=== PATIENT | female | born 1990 | race Caucasian/White ===

== ENCOUNTER 2023-03-28 08:21 | Emergency (ER) | payer OTHER, SELFPAY ==
[2023-03-28] VITALS (7 sets, daily range): BP systolic 114–144; BP diastolic 75–88; BMI 29.4
[2023-03-28] MEDS: NSS 1000 IV (09:58)
[2023-03-28 10:24] LABS: ALT (SGPT) 236 U/L (0-35); AST (SGOT) 322 U/L (14-36); Albumin 4.8 g/dl (3.5-5.0); Alkaline Phosphatase 104 U/L (38-126); Blood Urea Nitrogen 8 mg/dl (7-17); Calcium 9.8 mg/dl (8.4-10.2); Carbon Dioxide 23 mmol/L (22-30); Chloride 103 mmol/L (98-107); Estimated Creatinine Clearance > 125 ml/min; Glucose 133 mg/dl (70-99); Potassium 3.2 mmol/L (3.5-5.1); Sodium 136 mmol/L (135-145); Total Bilirubin 4.3 mg/dl (0.2-1.3); Total Protein 8.1 g/dl (6.3-8.2); eGFR > 60.00
[2023-03-28 10:26] LABS: D-Dimer < 0.27 ug/mlFEU (0.00-0.50)
[2023-03-28 10:31] LABS: Troponin I < 0.012 ng/ml
[2023-03-28 10:43] LABS: % Basophils 0.5 % (0-2); % Eosinophils 0.3 % (0-6); % Immature Granulocytes 0.5 % (0-0.5); % Lymphocytes 12.4 % (20.5-51.1); % Monocytes 7.9 % (1.7-9.3); % Neutrophils 78.4 % (42.2-75.2); Absolute Lymphocytes 0.9 10^3/uL (1.2-3.4); Absolute Monocytes 0.6 10^3/uL (0.1-0.6); Mean Corp Hgb Conc. 38.1 g/dL (33.0-37.0); Mean Corpuscular Hgb 35.6 pg (27.0-31.0); Mean Corpuscular Volume 93.5 fL (81.0-99.0); Mean Platelet Volume 9.5 fL (7.4-10.4); Nucleated Red Blood Cells % 0 %; Platelet Count 366 10^3/uL (130-400); Red Blood Cell Count 4.49 10^6/uL (4.20-5.40); Red Cell Dist. Width 11.7 % (11.5-14.5); White Blood Cell Count 7.6 10^3/uL (4.8-10.8)
[2023-03-28] MEDS: LOPRESSOR 25 MG PO (10:49)
--- NOTE | 2023-03-28 11:01 | ED.GENMED ---
History of Present Illness
General
Chief Complaint: Breathing Problem
Source: patient
Exam Limitations: none
Time Seen by Provider: 03/28/23 09:00
Nursing documentation reviewed up to this point in time: agreed with
Travel History
Have you had any contact with someone who has COVID-19?: No
Do you have any symptoms of coronavirus? Fever > 100 degrees, chills, cough, shortness of breath, sore throat, loss of taste or smell, muscle aches, or headache?: No
History of Present Illness
History of Present Illness:
32 yo female w h/o depression/anxiety, PTSD presents with mid, non radiating chest pain, worse with deep breaths, woke up at midnight with 'I couldn't breathe.'
She has history of alcohol misuse, in the past week has been trying to wean herself off of Vodka. Went from a quart a day to 3 a.m. today had 'a half of a shot.'
Remote history of heroine addiction, clean for 8 years. Vapes tobacco, once in a while marijuana, no other recreational drugs.
She states 'I just don't feel good.' and wonders if her right lower tooth that had root canal and lost the cap is infected making her feel this way. State no drainage, swelling or pain but 'I can taste infection.'
Past History
Past History
ED Past Medical History: Psychiatric (Anxiety/depression, PTSD)
ED Past Surgical History: Gynecological (DNA 2020)
Social History
Tobacco: Vaping
Alcohol: Daily
Drug: None
Personal: Partner
Living: with family
Employment: Employed
Review of Systems
Review of Systems
Allergies reviewed?: Yes
All Other Systems: ROS reviewed and negative except as documented in HPI and ROS
Constitutional: Denies fever or fatigue
Respiratory: Denies trouble breathing (feels SOB at times)
Cardiac: Reports chest pain; Denies diaphoresis, palpitations or syncope
ABD/GI: Reports nausea and vomiting; Denies abdominal pain or diarrhea
: Denies dysuria or difficulty voiding
Musculoskeletal: Reports no symptoms
Skin: Reports no symptoms
Neurological: Reports no symptoms
Phy Exam
Physical Exam
Physical Exam:
GENERAL: No acute distress. A&Ox3.
CONSTITUTIONAL: Afebrile.
EYES: PERRL, conjunctivae normal
ENMT: moist mucus membranes, Pharynx nl, R lower molar with missing cap, no palpable abscess, no swelling or drainage. No lymphadenopathy
RESPIRATORY: Regular respirations, nonlabored, lungs clear.
CARDIOVASCULAR: Regular rate and rhythm, no murmurs, no rubs.
GI: Soft, nontender, normal BS
MUSCULOSKELETAL: Moves with ease. Well perfused.
SKIN: Warm, dry, pink
PSYCH: Normal mood and affect. Well kept, interactive and appropriate
NEUROLOGIC: Awake, alert and oriented. No focal neurological deficits
Scores
Withdrawal Assessment of Alcohol
Withdrawal Assessment Completed?: Yes
Nausea and Vomiting: Intermittent nausea with dry heaves
Tactile Disturbances: None
Tremor: No tremor
Auditory Disturbances: Not present
Paroxysmal Sweats: No sweat visible
Visual Disturbances: Very mild sensitivity
Anxiety: Mild anxiety
Headache, Fullness in Head: Not present
Agitation: Normal activity
Orientation and clouding of sensorium: Oriented and can do serial additions
Total CIWA Score: 6
Alcohol Withdrawal Medication Recommendation: Equal to MSAS Score 0-4. Monitor & re-assess q2hrs, NO MEDICATION NEEDED
Course
Orders/Labs/Results
Orders:
Orders
03/28/23 08:37
EKG [Electrocardiogram (*1)] Urgent
Reason for Study: Chest Pain
EKG- Treatment ONCE
03/28/23 09:41
Metoprolol [Lopressor] 25 mg PO NOW STA
03/28/23 09:42
0.9% Sodium Chloride 1000 ml [Nss] 1,000 ml IV BOLUS
03/28/23 09:49
Complete Blood Count/With Diff Urgent
Comprehensive Metabolic Panel Urgent
D-Dimer Urgent
Troponin I Urgent
Abnormal Lab Results
03/28/23
09:49
MCH 35.6 H pg
(27.0-31.0)
MCHC 38.1 H g/dL
(33.0-37.0)
Absolute Lymphs (auto) 0.9 L 10^3/uL
(1.2-3.4)
Neutrophils % 78.4 H %
(42.2-75.2)
Lymphocytes % 12.4 L %
(20.5-51.1)
Potassium 3.2 L mmol/L
(3.5-5.1)
Creatinine 0.5 L mg/dL
(0.6-1.0)
Glucose 133 H mg/dl
(70-99)
Total Bilirubin 4.3 H mg/dl
(0.2-1.3)
AST 322 H U/L
(14-36)
ALT 236 H U/L
(0-35)
03/28/23 09:49
03/28/23 09:49
Vital Signs
Initial and Last Documented VS:
Initial Vital Signs
Temp Pulse Resp BP Pulse Ox
98.2 F 118 16 144/88 98
03/28/23 08:33 03/28/23 08:33 03/28/23 08:33 03/28/23 08:33 03/28/23 08:33
Last Documented Vital Signs
Temp Pulse Resp BP Pulse Ox
98.2 F 93 12 124/79 98
03/28/23 08:33 03/28/23 14:28 03/28/23 12:45 03/28/23 14:28 03/28/23 12:45
MDM/Problems Addressed
Differential Diagnosis Includes:
depression/anxiety, alcohol misuse,
MDM/Problems Addressed:
32 yo female w h/o depression/anxiety, PTSD presents with mid, non radiating chest pain, worse with deep breaths, woke up at midnight with 'I couldn't breathe.'
She has history of alcohol misuse, in the past week has been trying to wean herself off of Vodka. Went from a quart a day to 3 a.m. today had 'a half of a shot.'
Remote history of heroine addiction, clean for 8 years. Vapes tobacco, once in a while marijuana, no other recreational drugs.
She states 'I just don't feel good.' and wonders if her right lower tooth that had root canal and lost the cap is infected making her feel this way. State no drainage, swelling or pain but 'I can taste infection.'
EKG: Sinus tachycardia
Patient is most likely mildly withdrawing from alcohol, therefore the tachycardia and feeling anxious. I offered her a small dose of Ativan but she wondered if she could rather have 'gotten some kind of blood pressure work for this?' She is
tachycardic her blood pressure is mildly elevated I will give her dose of beta-sharan to see if it helps.
03/28/2023 1106 AM
CBC normal
CMP showing elevation of bilirubin, AST and ALT. consistent with alcoholic hepatitis
Troponin normal
D-dimer normal
MSAS score 6
[facility], she is on the phone with them now.
03/28/2023 1142 AM
Patient is waiting for [facility] to get back with us they are looking for an inpatient bed
03/28/2023 1321 PM
Patient remained stable, states she is comfortable
No significant withdrawal symptoms
Patient will be moved to as her ride to [facility] will be here at 2 p.m.
*Critical Care Note
Total Time (30-74mins, 75-104mins- exclusive of procedures): Not Applicable
ED Attending Note
-
Portions of this chart may have been created with voice recognition software.� Occasional wrong word or��sound alike� substitutions may have occurred due to the inherent limitations of voice recognition software.
Discharge Plan
Departure
Patient Disposition: Acute Rehab Facility
Date of Disposition: 03/28/23
Time of Disposition: 14:04
Condition: Good
Discharge Problem:
Alcohol abuse, Atypical chest pain
Instructions: Chest Pain That Is Not Caused by the Heart (DC), Alcohol Use Disorder ED
Prescriptions:
No Action
sertraline 100 MG tablet
100 mg PO DAILY
cannabidiol [Epidiolex] 1 UNIT solution
1 unit PO PRN PRN (Reason: anxiety)
Referrals:
Blank Galarza MD [Family Provider] -
Activity Restrictions/Additional Instructions:
As we discussed, you are medically cleared to go to rehab.
Your liver enzymes are elevated most likely due to alcohol
After you stop drinking, have them rechecked through your primary doctor within the next 3 months.
Interventions
Interventions:
*Risk Screen - Suicide Last Done: 03/28/23 08:33
*General Assessment Last Done: 03/28/23 08:33
*Neglect/Abuse Screening Last Done: 03/28/23 08:33
ED- Fall Risk Assessment Last Done: 03/28/23 10:01
*ED COVID-19 Vaccine History Last Done: 03/28/23 10:01
*Nursing Disposition Last Done: 03/28/23 14:28
ED- Cardiac Assessment Last Done: 03/28/23 10:01
ED- Pulmonary Assessment Last Done: 03/28/23 10:01
Discharge Date and Time
Discharge Date/Time: 03/28/23 14:29
== END 2023-03-28 14:29 ==
LOC: EMR 08:21
PROVIDERS: Registered Nurse; EMERGENCY PHYSICIAN Emergency Medicine; FAMILY PHYSICIAN Family Medicine
DX: F10.10 Alcohol abuse, uncomplicated (principal); R07.89 Other chest pain
CPT/HCPCS: 99284; 96360; 80053; 84484; 85025; 85379; 93005